=== PATIENT | male | born 1980 | race Caucasian/White ===

== ENCOUNTER 2018-06-29 04:28 | Inpatient (IN) | payer OTHER ==
[~2018-06-29] VITALS: Ht 172.7 cm; Wt 77.9 kg
--- NOTE | 2018-06-29 05:01 | NUR ---
PT HERE FOR N/V X 3 NIGHTS. PER PT KIDS HAVE BEEN ILL. PT RESTING WITH NO NEEDS AT THIS TIME. CALL LIGHT IN REACH
[2018-06-29] MEDS ORDERED: SODIUM CHLORIDE 0.9% 1,000 ML IV ONE ×2 (05:08→07:25)
[2018-06-29 05:20] LABS: BASOPHILS # (AUTO) 0.02 x10^3/uL (0-0.1); BASOPHILS % (AUTO) 0 % (0-1); EOSINOPHILS # (AUTO) 0.07 x10^3/uL (0-0.4); EOSINOPHILS % (AUTO) 1 % (1-7); LYMPHOCYTES # (AUTO) 1.49 x10^3/uL (1-3.4); LYMPHOCYTES % (AUTO) 18 % (22-44); MD NO; MEAN CORPUSCULAR HEMOGLOBIN 29.9 pg (27.5-34.5); MEAN CORPUSCULAR HGB CONC 33.9 g/dL (33.2-36.2); MEAN CORPUSCULAR VOLUME 88.2 fL (81-97); MEAN PLATELET VOLUME 8.3 fL (7.4-10.4); MONOCYTES # (AUTO) 0.37 x10^3/uL (0.2-0.8); MONOCYTES % (AUTO) 5 % (2-9); NEUTROPHILS # (AUTO) 6.26 x10^3/uL (1.8-6.8); NEUTROPHILS % (AUTO) 76 % (42-75); PLATELET COUNT 297 x10^3/uL (130-400); RED BLOOD COUNT 5.07 x10^6/uL (4.38-5.82); RED CELL DISTRIBUTION WIDTH 13.4 % (9.4-14.8)
[2018-06-29] MEDS ORDERED: MORPHINE SULFATE 4 MG/ML, 1ML IVPush PRN ×2 (05:30→07:30)
[2018-06-29] MEDS ORDERED: ONDANSETRON 2MG/ML, 2ML IVPush ONE (05:30)
[2018-06-29] MEDS ORDERED: SODIUM CHLORIDE 0.9% 1,000ML IVBOLUS ONE (05:30)
[2018-06-29] MEDS ORDERED: SODIUM CHLORIDE FLUSH 10ML SYR IVF ONE (05:30)
[2018-06-29 05:31] LABS: ALANINE AMINOTRANSFERASE 28 U/L (12-78); ALBUMIN 4.3 g/dL (3.4-5.0); ANION GAP 8 mmol/L (5-15); CHLORIDE 108 mmol/L (98-107); CREATININE 0.92 mg/dL (0.7-1.3)
[2018-06-29 05:34] LABS: ALKALINE PHOSPHATASE 83 U/L (45-117); BILIRUBIN,TOTAL 0.5 mg/dL (0.2-1.0); TOTAL PROTEIN 7.6 g/dL (6.4-8.2)
[2018-06-29] MEDS ORDERED: ONDANSETRON 2MG/ML, 2ML ONE (05:44)
[2018-06-29] MEDS ORDERED: MORPHINE SULFATE 4 MG/ML, 1ML ONE (05:45)
--- NOTE | 2018-06-29 06:05 | NUR ---
IV STARTED. ORDERED MEDS FOR NAUSEA AND PAIN GIVEN. ORDERED FLUIDS STARTED. PT IN HOSPITAL GOWN.
--- NOTE | 2018-06-29 06:20 | NUR ---
US BEING DONE AT BEDSIDE.
--- NOTE | 2018-06-29 07:10 | NUR ---
REPORT TO CRISTA HENRY
[2018-06-29] MEDS ORDERED: SODIUM CHLORIDE FLUSH 10ML SYR IVF PRN (07:30)
[2018-06-29] MEDS ORDERED: ONDANSETRON 2MG/ML, 2ML IVPush PRN ×2 (07:30→08:00)
[2018-06-29] MEDS ORDERED: ONDANSETRON ODT 4 MG PO PRN (08:00)
[2018-06-29] MEDS ORDERED: DOCUSATE 100 MG CAPSULE PO PRN (08:00)
[2018-06-29] MEDS ORDERED: ENALAPRILAT 1.25 MG/ML, 2ML IVPush PRN (08:00)
[2018-06-29 08:45] LABS: CHOL/HDL RATIO 2.8; LDL/HDL RATIO 1.7 (0.5-3.0)
[2018-06-29] MEDS: ENOXAPARIN 40 MG/0.4 ML SQ SCH (09:00)
[2018-06-29 09:02] LABS: MICROSCOPIC NOT IND
[2018-06-29 09:05] LABS: CULTURE INDICATED? NO
[2018-06-29] MEDS: SODIUM CHLORIDE 0.9% 1,000 ML IV SCH ×2 (13:00→23:38)
[2018-06-29] MEDS: FAMOTIDINE 20 MG TABLET PO SCH ×2 (13:01→20:14)
[2018-06-29] MEDS: SENNA/DOCUSATE TABLET PO SCH (13:01)
[2018-06-29 13:29] VITALS: BP 107/70
[2018-06-29 14:00] VITALS: BP 130/79
[2018-06-29 19:58] VITALS: BP 130/79
[2018-06-30 03:59] VITALS: BP 126/74
[2018-06-30 05:17] LABS: MEAN CORPUSCULAR HEMOGLOBIN 29.3 pg (27.5-34.5); MEAN CORPUSCULAR HGB CONC 33.1 g/dL (33.2-36.2); MEAN CORPUSCULAR VOLUME 88.4 fL (81-97); MEAN PLATELET VOLUME 8.4 fL (7.4-10.4); PLATELET COUNT 278 x10^3/uL (130-400); RED BLOOD COUNT 4.87 x10^6/uL (4.38-5.82)
[2018-06-30 05:21] LABS: ALBUMIN 3.5 g/dL (3.4-5.0); ANION GAP 5 mmol/L (5-15); CALCIUM 8.4 mg/dL (8.5-10.1); CHLORIDE 110 mmol/L (98-107)
[2018-06-30 05:25] LABS: ALANINE AMINOTRANSFERASE 21 U/L (12-78); ALKALINE PHOSPHATASE 66 U/L (45-117); BILIRUBIN,TOTAL 0.8 mg/dL (0.2-1.0); TOTAL PROTEIN 6.3 g/dL (6.4-8.2)
[2018-06-30 06:14] LABS: BASOPHILS # (AUTO) 0.03 x10^3/uL (0-0.1); BASOPHILS % (AUTO) 1 % (0-1); EOSINOPHILS # (AUTO) 0.13 x10^3/uL (0-0.4); EOSINOPHILS % (AUTO) 3 % (1-7); LYMPHOCYTES % (AUTO) 42 % (22-44); MD SCAN; MONOCYTES % (AUTO) 10 % (2-9); NEUTROPHILS # (AUTO) 2.35 x10^3/uL (1.8-6.8); NEUTROPHILS % (AUTO) 45 % (42-75)
[2018-06-30 07:23] VITALS: BP 120/78
[2018-06-30] MEDS: SENNA/DOCUSATE TABLET PO SCH (09:00)
[2018-06-30] MEDS: ENOXAPARIN 40 MG/0.4 ML SQ SCH (09:00)
[2018-06-30] MEDS: SODIUM CHLORIDE 0.9% 1,000 ML IV SCH (09:34)
[2018-06-30] MEDS: FAMOTIDINE 20 MG TABLET PO SCH (09:34)
[2018-06-30 12:49] VITALS: BP 114/62
[2018-06-30] MEDS ORDERED: ONDA4TAB13 SL (16:55)
== END 2018-06-30 20:23 | disposition home or self-care (01) | DRG 391 ==
LOC: ED 06:45 → EDIP 07:25 → 3NE 08:20
PROVIDERS: ADMIT Hospitalist; ATTEND Hospitalist
DX: K52.9 Noninfective gastroenteritis and colitis, unspecified (principal); K85.00 Idiopathic acute pancreatitis without necrosis or infection; Z83.3 Family history of diabetes mellitus; F12.90 Cannabis use, unspecified, uncomplicated; E86.0 Dehydration; Z90.49 Acquired absence of other specified parts of digestive tract
CPT/HCPCS: 36415; 76700; 80053; 80061; 81003; 83690; 83735; 84100; 85025; 99285; G0378; J2405; J7030